=== PATIENT | male | born 1970 | race African-American/Black ===

== ENCOUNTER 2024-10-23 15:49 | Emergency (ER) | payer OTHER ==
[~2024-10-23] VITALS: Ht 180.3 cm; Wt 109.0 kg
[2024-10-23 15:58] VITALS: O2SAT 98
[2024-10-23 16:30] VITALS: BP 127/72; PULSE 68; RESP 14
[2024-10-23] MEDS ORDERED: IBUP-2028 MT (16:47)
== END 2024-10-23 17:36 | disposition home or self-care (01) ==
LOC: ER 15:49
DX: M25.562 Pain in left knee (principal); I10 Essential (primary) hypertension; W22.8XXA Striking against or struck by other objects, initial encounter; X58.XXXA Exposure to other specified factors, initial encounter; Y93.89 Activity, other specified; Y92.89 Other specified places as the place of occurrence of the external cause; Y99.8 Other external cause status
CPT/HCPCS: 73562; 99283